=== PATIENT | female | born 1940 | race Caucasian/White ===

== ENCOUNTER 2017-04-09 12:57 | Emergency (ER) | payer MEDICARE ==
[~2017-04-09] VITALS: Ht 167.6 cm; Wt 83.9 kg
--- NOTE | ~2017-04-09 | CR173 ---
[facility] A Service [facility] RADIOLOGY TEXT RESULTS PATIENT: TONY DELEON LOCATION: [facility] : 41 UNIT #: [id number] AGE: [address]: Don Ortiz MD SEX: F ORDER DR: [id number] [place] [address] [id number] E MR#: [id number] Acc #: [id number] NAME: TONY DELEON. : 1940 SEX: F STUDY DATE/TIME: 04/09/2017 1400 UNIT: SED ROOM: STUDY DESCRIPTION: CR Knee 3 Views Rt Attending Physician: Don Ortiz M.D. Ordering Physician: Don Ortiz M.D. Primary Care Physician: Delvin Álvarez MEDICAL IMAGING REPORT This report is preliminary unless electronic signature is present. EXAM Right knee, 3 views, 04/09/2017, 1400 hours. HISTORY Patient fell 2 days ago complaining of knee pain. Bruising at right knee. COMPARISON None FINDINGS AP, cross-table lateral, and sunrise views demonstrate prior total knee replacement with anatomic alignment. There is fluid or synovial thickening in the suprapatellar bursa. There is no fracture or hardware failure seen. IMPRESSION Postop change total knee replacement with anatomic alignment and no hardware failure. No fracture seen. There is fluid or synovial thickening in the suprapatellar bursa, but no lipohemarthrosis. Dictated by... Makayla Zelaya M.D. THIS IS AN ELECTRONICALLY VERIFIED REPORT Makayla Zelaya M.D. at 04/10/2017 9:16 AM MAGGIE/ina TD: 04/09/2017 21:19 JOB #: [id number] [facility] A Service [facility] RADIOLOGY TEXT RESULTS PATIENT: TONY DELEON LOCATION: [facility] : 41 UNIT #: [id number] AGE: [address]: Don Ortiz MD SEX: F ORDER DR: MEDICAL IMAGING REPORT Page 1 of 1
--- NOTE | ~2017-04-09 | CR253 ---
[facility] A Service of [facility] RADIOLOGY TEXT RESULTS PATIENT: TONY DELEON LOCATION: [facility] : 41 UNIT #: [id number] AGE: [address]: Don Ortiz MD SEX: F ORDER DR: [id number] [place] [id number] E MR#: [id number] Acc #: [id number] NAME: TONY DELEON. : 1940 SEX: F STUDY DATE/TIME: 04/09/2017 14:00 UNIT: SED ROOM: STUDY DESCRIPTION: CR Tibia and Fibula 2 Views Rt Attending Physician: Don Ortiz M.D. Ordering Physician: Don Ortiz M.D. Primary Care Physician: Delvin Álvarez MEDICAL IMAGING REPORT This report is preliminary unless electronic signature is present. EXAM Right tibia and fibula, 04/09/2017, 1400 hours. CLINICAL HISTORY Patient fell 2 days ago with lower leg pain from knee to ankle. COMPARISON None. FINDINGS AP, lateral and oblique views demonstrate postop change total knee replacement. There is no fracture. IMPRESSION Negative tibia and fibula. Dictated by... Makayla Zelaya M.D. THIS IS AN ELECTRONICALLY VERIFIED REPORT Makayla Zelaya M.D. at 04/10/2017 9:16 AM MAGGIE/mira TD: 04/09/2017 21:39 JOB #: [id number] MEDICAL IMAGING REPORT Page 1 of 1
--- NOTE | ~2017-04-09 | CR150 ---
[facility] A Service of [facility] RADIOLOGY TEXT RESULTS PATIENT: TONY DELEON LOCATION: [facility] : 41 UNIT #: [id number] AGE: [address]: Don Ortiz MD SEX: F ORDER DR: [id number] [place] [id number] E MR#: [id number] Acc #: [id number] NAME: TONY DELEON. : 1940 SEX: F STUDY DATE/TIME: 04/09/2017 14:00 UNIT: SED ROOM: STUDY DESCRIPTION: CR Hip Min 2 Views Lt Attending Physician: Don Ortiz M.D. Ordering Physician: Don Ortiz M.D. Primary Care Physician: Delvin Álvarez MEDICAL IMAGING REPORT This report is preliminary unless electronic signature is present. EXAM Left hip 2 views, 04/09/2017 1400 hours CLINICAL HISTORY Patient fell 2 days ago complaining of left hip pain. COMPARISON None. FINDINGS AP pelvis and frog lateral view left hip demonstrate enthesopathic spurring at the left greater than right iliac crests and at the greater trochanters bilaterally. There is no definite hip or proximal femur fracture. There are ossicles seen adjacent to the greater trochanter. The pubic rami are intact. IMPRESSION No hip fracture or pelvic fracture is seen. There are ossicles adjacent to the greater trochanter which appear chronic. Enthesopathic changes are present. Dictated by... Makayla Zelaya M.D. THIS IS AN ELECTRONICALLY VERIFIED REPORT Makayla Zelaya M.D. at 04/10/2017 9:16 AM MAGGIE/mike TD: 04/09/2017 21:28 JOB #: [id number] [facility] A Service [facility] RADIOLOGY TEXT RESULTS PATIENT: TONY DELEON LOCATION: [facility] : 41 UNIT #: [id number] AGE: [address]: Don rOtiz MD SEX: F ORDER DR: MEDICAL IMAGING REPORT Page 1 of 1
--- NOTE | ~2017-04-09 | US140 ---
[facility] A Service of [facility] RADIOLOGY TEXT RESULTS PATIENT: TONY DELEON LOCATION: [facility] : 41 UNIT #: [id number] AGE: [address]: Don Ortiz MD SEX: F ORDER DR: [id number] [place] [address] [id number] E MR#: [id number] Acc #: [id number] NAME: TONY DELEON. : 1940 SEX: F STUDY DATE/TIME: 04/09/2017 13:50 UNIT: SED ROOM: STUDY DESCRIPTION: [facility] Attending Physician: Don Ortiz M.D. Ordering Physician: Don Ortiz M.D. Primary Care Physician: Delvin Álvarez MEDICAL IMAGING REPORT This report is preliminary unless electronic signature is present. EXAM Left lower extremity venous ultrasound INDICATION Left leg trauma and pain since yesterday. TECHNIQUE Venous ultrasound examination of the left lower extremity was performed using grayscale, spectral Doppler and color flow Doppler imaging. FINDINGS The examination is negative. There is no evidence of left lower extremity deep venous thrombus from the groin to the lower calf. Visualized greater saphenous vein is also patent. IMPRESSION Negative examination. No evidence of left lower extremity deep venous thrombosis. Dictated by... Don Polo M.D. THIS IS AN ELECTRONICALLY VERIFIED REPORT Don Polo M.D. at 04/10/2017 9:50 AM NAVEEN/mike TD: 04/09/2017 23:14 JOB #: [id number] [facility] A Service of [facility] RADIOLOGY TEXT RESULTS PATIENT: OTNY DELEON LOCATION: [facility] : 41 UNIT #: [id number] AGE: [address]: Don Ortiz MD SEX: F ORDER DR: MEDICAL IMAGING REPORT Page 1 of 1
== END 2017-04-09 16:25 | disposition home or self-care (01) ==
LOC: SED 12:57 → CED 13:41 → SED 13:41
DX: S80.01XA Contusion of right knee, initial encounter (principal); S80.12XA Contusion of left lower leg, initial encounter; S70.02XA Contusion of left hip, initial encounter; I11.9 Hypertensive heart disease without heart failure; E11.9 Type 2 diabetes mellitus without complications; Z91.040 Latex allergy status; Z88.8 Allergy status to other drugs, medicaments and biological substances; W01.0XXA Fall on same level from slipping, tripping and stumbling without subsequent striking against object, initial encounter; Y92.009 Unspecified place in unspecified non-institutional (private) residence as the place of occurrence of the external cause
CPT/HCPCS: 29530; 73502; 73562; 73590; 93971; 99284